=== PATIENT | female | born 1950 | race Caucasian/White ===

== ENCOUNTER → 2021-01-08 | Outpatient (CLI) | payer MEDICARE ==
--- NOTE | 2021-01-08 17:09 | Diagnostic Imaging Report ---
PROCEDURE: US Thyroid. TECHNIQUE: Multiple real-time grayscale images were obtained of the thyroid in various projections. INDICATION: Hypothyroidism with fullness in the neck. FINDINGS: The right lobe measures 3.5 x 1 x 1 cm. There is a 5 mm oval hypoechoic nonvascular nodule without calcification. The left lobe measures 2.7 x 0.4 x 0.5 cm. There is a similar appearing oval hypoechoic nodule measuring approximately 6 x 4 mm. The isthmus measures 2 mm. IMPRESSION: Small bilateral-appearing lobes of the thyroid. Oval hypoechoic subcentimeter nodules with smooth margins considered low risk for malignancy. TI-RADS 3. Dictated by: Dictated on workstation # [id number]
== END ==
LOC: RAD 11:00
PROVIDERS: ATTEND Family Medicine
DX: E04.2 Nontoxic multinodular goiter (principal); E03.9 Hypothyroidism, unspecified
CPT/HCPCS: 76536